=== PATIENT | female | born 1965 | race African-American/Black ===

== ENCOUNTER → 2022-11-10 | Outpatient (CLI) | payer OTHER | END | disposition home or self-care (01) | LOC: MAMO-SONO 13:30 | PROVIDERS: ATTEND General Practice | DX: Z12.31 Encounter for screening mammogram for malignant neoplasm of breast (principal); J06.0 Acute laryngopharyngitis ==

== ENCOUNTER 2022-12-02 13:29 | Outpatient (CLI) | payer OTHER | END 2022-12-02 15:47 | disposition home or self-care (01) | LOC: NUCLEAR 13:29 | PROVIDERS: ATTEND General Practice | DX: M81.0 Age-related osteoporosis without current pathological fracture (principal); M85.9 Disorder of bone density and structure, unspecified; M17.0 Bilateral primary osteoarthritis of knee; M16.0 Bilateral primary osteoarthritis of hip ==

== ENCOUNTER 2024-02-01 09:51 | Outpatient (CLI) | payer OTHER | END 2024-02-01 10:03 | disposition home or self-care (01) | LOC: MAMO-SONO 09:51 | PROVIDERS: ATTEND Obstetrics & Gynecology Gynecology | DX: N64.4 Mastodynia (principal); Z12.31 Encounter for screening mammogram for malignant neoplasm of breast ==

== ENCOUNTER 2024-10-06 15:26 | Outpatient (CLI) | payer OTHER | END 2024-10-06 15:32 | disposition home or self-care (01) | LOC: RAD 15:26 | PROVIDERS: ATTEND Orthopaedic Surgery Sports Medicine | DX: M17.0 Bilateral primary osteoarthritis of knee (principal) ==